=== PATIENT | male | born 1965 | race American Indian/Alaskan Native ===

== ENCOUNTER 2020-01-26 19:34 | Observation (INO) | payer OTHER ==
[2020-01-26] MEDS ORDERED: ASPIRIN 325 MG TAB PO ONE (19:41)
[2020-01-26 19:59] LABS: Hematocrit 37.7 % (35.5-45.6); Mean Corpuscular HGB Conc 34 % (32-34); Mean Corpuscular Volume 78 fl (84-94); Platelet Count 209 K/mm3 (140-440); Red Blood Count 4.82 M/mm3 (3.65-5.03); Red Cell Distribution Width 15.1 % (13.2-15.2)
[2020-01-26 20:24] LABS: BUN/Creatinine Ratio 18; Blood Urea Nitrogen 18 mg/dL (9-20); Calcium 9.2 mg/dL (8.4-10.2); Hemolysis Index 3
[2020-01-26 20:44] LABS: RBC Morphology Normal; Total Cells Counted 100
--- NOTE | 2020-01-26 20:47 | XRay Report ---
CHEST 2 VIEWS INDICATION / CLINICAL INFORMATION: Chest Pain. COMPARISON: None available. FINDINGS: SUPPORT DEVICES: None. HEART / MEDIASTINUM: No significant abnormality. LUNGS / PLEURA: There is mild interstitial pulmonary edema present. No pleural effusions or findings to suggest the presence of pneumonia. No pneumothorax. ADDITIONAL FINDINGS: No significant additional findings. IMPRESSION: 1. Interstitial pulmonary edema. Signer Name: Donita Baltazar MD Signed: 01/26/2020 8:43 PM Workstation Name: [id number]
[2020-01-26] MEDS ORDERED: MORPHINE 2 MG/1 ML INJ IV ONE (21:04)
--- NOTE | 2020-01-26 21:04 | Emergency Department Report ---
ED Chest Pain HPI - General Chief Complaint: Chest Pain Stated Complaint: CHEST PAIN PUI?: No Time Seen by Provider: 01/26/20 20:58 Source: patient Mode of arrival: Ambulatory Limitations: No Limitations - History of Present Illness Initial Comments: Patient is a 54-year-old male that presents emergency with complaints of chest pain or shortness of breath. Patient also complains of nausea. Patient states that his chest pain started yesterday. Patient states his chest pain is worsening. Patient states it is a 10 out of 10. Patient states the chest pain is in his left chest. Patient states that the pain is nonradiating. Patient states he is also having dyspnea on exertion. Patient states his pain is better with rest and worse with exertion. Patient states that shortness of breath is better with rest and worse with exertion. Patient states his nausea is better with rest and worse with exertion. Patient also complains of diaphoresis. Patient denies recent travel. Patient denies recent international travel. Patient denies exposure to the novel coronavirus. Patient denies sick contacts. Patient denies fever and chills. Patient denies cough. Patient denies diarrhea. Patient denies coming in contact with anybody with symptoms of the novel coronavirus. MD Complaint: chest pain -: Sudden Onset: during rest Pain Location: substernal, left chest Pain Radiation: none Severity: severe Severity scale (0 -10): 10 Quality: sharp, squeezing Consistency: constant Improves With: rest Worsens With: exertion, movement re: nausea, diaphoresis, dyspnea, sense of impending doom. denies: vomting Other Symptoms: denies: cough, fever, syncope, rash, acid taste in mouth, leg swelling, palpitations, burping Treatments Prior to Arrival: none Aspirin use within the Past 7 Days: (0) No - Related Data On Oral Contraceptives: No Allergies Allergy/AdvReac Type Severity Reaction Status Date / Time No Known Allergies Allergy Unverified 01/26/20 19:37 Heart Score - HEART Score History: Moderately suspicious EKG: Non-specific Age: 45-65 Risk factors: 1-2 risk factors Troponin: < normal limit HEART Score: 4 ED Review of Systems ROS: Stated complaint: CHEST PAIN Other details as noted in HPI Constitutional: denies: chills, fever Eyes: denies: eye pain, eye discharge, vision change ENT: denies: ear pain, throat pain Respiratory: shortness of breath, SOB with exertion, SOB at rest. denies: cough, wheezing Cardiovascular: chest pain, dyspnea on exertion. denies: palpitations Endocrine: no symptoms reported Gastrointestinal: denies: abdominal pain, nausea, diarrhea Genitourinary: denies: urgency, dysuria Musculoskeletal: denies: back pain, joint swelling, arthralgia Skin: denies: rash, lesions Neurological: denies: headache, weakness, paresthesias Psychiatric: denies: anxiety, depression Hematological/Lymphatic: denies: easy bleeding, easy bruising ED Past Medical Hx - Past Medical History Previous Medical History?: Yes Additional medical history: Hyperlipidemia, prediabetes, obesity - Surgical History Past Surgical History?: No - Family History Family history: no significant - Social History Smoking Status: Never Smoker Substance Use Type: None ED Physical Exam - General Limitations: No Limitations General appearance: alert, in no apparent distress - Head Head exam: Present: atraumatic, normocephalic - Eye Eye exam: Present: normal appearance, PERRL - ENT ENT exam: Present: mucous membranes moist - Neck Neck exam: Present: normal inspection - Respiratory Respiratory exam: Present: normal lung sounds bilaterally. Absent: respiratory distress, wheezes, rales, chest wall tenderness, accessory muscle use, decreased breath sounds - Cardiovascular Cardiovascular Exam: Present: regular rate, normal rhythm. Absent: systolic murmur, diastolic murmur, rubs, gallop - GI/Abdominal GI/Abdominal exam: Present: soft, normal bowel sounds - Rectal Rectal exam: Present: deferred - Extremities Exam Extremities exam: Present: normal inspection - Back Exam Back exam: Present: normal inspection - Neurological Exam Neurological exam: Present: alert, oriented X3 - Psychiatric Psychiatric exam: Present: normal affect, normal mood - Skin Skin exam: Present: warm, dry, intact, normal color. Absent: rash ED Course Vital Signs 01/26/20 01/26/20 01/26/20 19:37 20:50 20:54 Temperature 98.2 F 98.1 F Pulse Rate 84 80 Respiratory 18 16 18 Rate Blood Pressure 147/84 Blood Pressure 134/73 [Right] O2 Sat by Pulse 98 98 98 Oximetry 01/26/20 23:52 Temperature Pulse Rate 68 Respiratory 20 Rate Blood Pressure Blood Pressure 136/64 [Right] O2 Sat by Pulse 96 Oximetry - Reevaluation(s) Reevaluation #1: Patient states his pain is better after the aspirin and morphine. 01/26/20 21:25 Reevaluation #2: I discussed all results with patient. I discussed plan of care with patient. Patient agrees with plan of care and admission. Patient to be admitted to the hospitalist service. 01/26/20 21:41 - Consultations Consultation #1: Hospitalist consulted for admission. Hospitalist to admit patient. 01/26/20 21:41 MARIXA score - Marixa Score Age > 65: (0) No Aspirin use within the Past 7 Days: (0) No 3 or more CAD Risk Factors: (0) No 2 or more Angina events in past 24 hrs: (1) Yes Known CAD with more than 50% Stenosis: (0) No Elevated Cardiac Markers: (0) No ST Deviation Greater than 0.5mm: (0) No MARIXA Score: 1 ED Medical Decision Making - Lab Data Result diagrams: 01/26/20 19:46 01/26/20 19:46 - EKG Data -: EKG Interpreted by Vt EKG shows normal: sinus rhythm, axis, intervals, QRS complexes, ST-T waves - EKG Data Interpretation: [facility] - Radiology Data Radiology results: report reviewed CHEST 2 VIEWS INDICATION / CLINICAL INFORMATION: Chest Pain. COMPARISON: None available. FINDINGS: SUPPORT DEVICES: None. HEART / MEDIASTINUM: No significant abnormality. LUNGS / PLEURA: There is mild interstitial pulmonary edema present. No pleural effusions or findings to suggest the presence of pneumonia. No pneumothorax. ADDITIONAL FINDINGS: No significant additional findings. IMPRESSION: 1. Interstitial pulmonary edema. - Medical Decision Making Patient is a 54-year-old male that presents emergency room complaints of chest pain and shortness of breath. Patient also complains of nausea. Patient's past medical history consistent with prediabetes, elevated cholesterol and obesity. Patient had labs done which were essentially unremarkable. Patient's troponin was negative. Patient's chest x-ray showed pulmonary edema. Patient admitted to the hospitalist service for further evaluation and treatment. Patient given aspirin and morphine after initial evaluation. Patient states his pain improved. - Differential Diagnosis Chest pain, shortness of breath, EM, CHF, ACS Critical Care Time: Yes Critical care time in (mins) excluding proc time.: 35 Critical care attestation.: If time is entered above; I have spent that time in minutes in the direct care of this critically ill patient, excluding procedure time. Critical Care Time: 35 minutes ED Disposition Clinical Impression: SOB (shortness of breath), EM (dyspnea on exertion) Chest pain Qualifiers: Chest pain type: unspecified Qualified Code(s): R07.9 - Chest pain, unspecified Pulmonary edema Qualifiers: Chronicity: acute Qualified Code(s): J81.0 - Acute pulmonary edema Disposition: 09 OP ADMIT IP TO THIS HOSP Is pt being admited?: Yes Does the pt Need Aspirin: No Condition: Critical Time of Disposition: 21:41
[2020-01-26] MEDS ORDERED: HEPARIN 5,000 UNIT/1 ML VIAL SUB-Q SCH (22:45)
[2020-01-26] MEDS ORDERED: MORPHINE 2 MG/1 ML INJ IV PRN (22:47)
[2020-01-26] MEDS ORDERED: NITROGLYCERIN 0.4 MG TAB SUBL SL PRN (22:48)
[2020-01-26] MEDS ORDERED: ONDANSETRON 4 MG/2 ML INJ IV PRN (22:48)
[2020-01-26] MEDS ORDERED: ACETAMINOPHEN 325 MG TAB PO PRN (22:49)
[2020-01-26] MEDS ORDERED: HEPARIN 5,000 UNIT/1 ML VIAL ONE (23:46)
[2020-01-27] MEDS ORDERED: NITROGLYCERIN 2% OINT 1 GM TP SCH (06:00)
--- NOTE | 2020-01-27 06:46 | History and Physical Report ---
History of Present Illness Date of examination: 01/26/20 Date of admission: 01/26/20 22:35 Chief complaint: Chief complaint is chest pain, other complaint include shortness of breath and diaphoresis History of present illness: History of presenting illness, patient is a 54-year-old male who started having squeezing and pressure-like chest pain a day prior to presentation, pain is located in the precordial area, does not radiate and is worse with exertion and better with rest. There is no history of fever or chills, no history of dizziness or altered mental status, but patient admitted to having associated symptoms of diaphoresis and nausea but no vomiting Past History Past Medical History: hyperlipidemia, other (OBESITY, PREDIABETES) Past Surgical History: No surgical history Social history: no significant social history Family history: no significant family history Medications and Allergies Allergies Allergy/AdvReac Type Severity Reaction Status Date / Time No Known Allergies Allergy Unverified 01/26/20 19:37 Active Meds: Active Medications Acetaminophen (Tylenol) 650 mg PO Q4H PRN PRN Reason: Headache Aspirin (Aspirin) 325 mg PO QDAY [facility] Heparin Sodium (Porcine) (Heparin) 5,000 unit SUB-Q Q12HR [facility] Last Admin: 01/26/20 23:49 Dose: 5,000 unit Documented by: Morphine Sulfate (Morphine) 2 mg IV Q3H PRN PRN Reason: Pain, Moderate (4-6) Nitroglycerin (Nitro-Bid 2%) 0.5 inch TP QIDNTG [facility]; Protocol Last Admin: 01/27/20 05:36 Dose: 0.5 inch Documented by: Nitroglycerin (Nitrostat) 0.4 mg SL .Q5MIN PRN PRN Reason: Chest Pain Ondansetron HCl (Zofran) 4 mg IV Q8H PRN PRN Reason: Nausea And Vomiting Review of Systems Constitutional: sweats, no weight gain, no fever, no night sweats, no anorexia, no fatigue, no weakness, no malaise Eyes: bilateral: other (NO BILATERAL EYE SYMPTOM) Ears, nose, mouth and throat: no ear pain, no ear discharge, no decreased hearing, no nose pain, no nasal congestion, no nasal discharge, no dental pain, no mouth pain, no dysphagia, no hoarseness, no sore throat, no headache Cardiovascular: chest pain, shortness of breath, no orthopnea, no palpitations, no rapid/irregular heart beat, no edema, no syncope, no lightheadedness Respiratory: shortness of breath, no cough, no cough with sputum, no excessive sputum, no pain on inspiration Gastrointestinal: nausea, no abdominal pain, no vomiting, no diarrhea, no constipation, no change in bowel habits, no hematemesis, no melena, no hematochezia, no loss of appetite Genitourinary Male: no dysuria, no hematuria, no flank pain, no discharge, no urinary frequency, no urinary hesitancy, no nocturia Rectal: no pain Musculoskeletal: no neck stiffness, no neck pain, no shooting arm pain, no arm numbness/tingling, no low back pain, no shooting leg pain, no leg numbness/tingling, no muscle weakness, no muscle cramps, no myalgias Integumentary: no rash, no pruritis, no redness, no sores, no wounds, no jaundice, no boils, no lesions, no darkening of skin, no depigmentation, no acne, no dryness Neurological: no head injury, no transient paralysis, no weakness, no parathesias, no numbness, no tingling, no seizures, no syncope, no tremors, no ataxia, no vertigo, no headaches, no migraines, no convulsions, no aphasia, no change in speech, no change in mentation, no confusion Psychiatric: no anxiety, no disorientation, no confusion Endocrine: no cold intolerance, no heat intolerance, no polydipsia, no polyuria, no nocturia, no palpatations Hematologic/Lymphatic: no easy bruising, no lymphadenopathy Allergic/Immunologic: no persistent infections, no anaphylaxis Exam - Constitutional Vitals: Temp Pulse Resp BP Pulse Ox 98.0 F 88 18 134/87 95 01/27/20 03:17 01/27/20 05:36 01/27/20 03:17 01/27/20 05:36 01/27/20 03:17 General appearance: Present: no acute distress - EENT Eyes: Present: PERRL, EOM intact ENT: hearing intact, clear oral mucosa, dentition normal - Neck Neck: Present: supple, normal ROM. Absent: carotid bruits - Respiratory Respiratory effort: normal - Cardiovascular Rhythm: regular Heart Sounds: Present: S1 & S2. Absent: gallop, systolic murmur, diastolic murmur, click - Extremities Extremities: no ischemia, No edema Peripheral Pulses: within normal limits - Abdominal General gastrointestinal: Present: soft, non-tender, non-distended. Absent: tender, distended, hepatomegaly, splenomegaly Male genitourinary: Present: deferred - Rectal Rectal Exam: deferred - Integumentary Integumentary: Present: clear, warm, dry - Musculoskeletal Musculoskeletal: strength equal bilaterally - Psychiatric Psychiatric: appropriate mood/affect - Neurologic Neurologic: CNII-XII intact HEART Score - HEART Score EKG: Non-specific Age: 45-65 Risk factors: 1-2 risk factors Troponin: Troponin T < 0.010 ng/mL (0.00-0.029) 01/27/20 00:47 Troponin: < normal limit - Critical Actions Critical Actions: 0-3 pts:0.9-1.7%risk of adverse cardiac event.Candidate for discharge Results - Labs CBC & Chem 7: 01/26/20 19:46 01/26/20 19:46 Labs: Laboratory Last Values WBC 7.6 K/mm3 (4.5-11.0) 01/26/20 19:46 RBC 4.82 M/mm3 (3.65-5.03) 01/26/20 19:46 Hgb 13.0 gm/dl (11.8-15.2) 01/26/20 19:46 Hct 37.7 % (35.5-45.6) 01/26/20 19:46 MCV 78 fl (84-94) L 01/26/20 19:46 MCH 27 pg (28-32) L 01/26/20 19:46 MCHC 34 % (32-34) 01/26/20 19:46 RDW 15.1 % (13.2-15.2) 01/26/20 19:46 Plt Count 209 K/mm3 (140-440) 01/26/20 19:46 Add Manual Diff Complete 01/26/20 19:46 Total Counted 100 01/26/20 19:46 Seg Neuts % (Manual) 53.0 % (40.0-70.0) 01/26/20 19:46 Band Neutrophils % 0 % 01/26/20 19:46 Lymphocytes % (Manual) 34.0 % (13.4-35.0) 01/26/20 19:46 Reactive Lymphs % (Man) 0 % 01/26/20 19:46 Monocytes % (Manual) 8.0 % (0.0-7.3) H 01/26/20 19:46 Eosinophils % (Manual) 4.0 % (0.0-4.3) 01/26/20 19:46 Basophils % (Manual) 1.0 % (0.0-1.8) 01/26/20 19:46 Metamyelocytes % 0 % 01/26/20 19:46 Myelocytes % 0 % 01/26/20 19:46 Promyelocytes % 0 % 01/26/20 19:46 Blast Cells % 0 % 01/26/20 19:46 Nucleated RBC % Not Reportable 01/26/20 19:46 Seg Neutrophils # Man 4.0 K/mm3 (1.8-7.7) 01/26/20 19:46 Band Neutrophils # 0.0 K/mm3 01/26/20 19:46 Lymphocytes # (Manual) 2.6 K/mm3 (1.2-5.4) 01/26/20 19:46 Abs React Lymphs (Man) 0.0 K/mm3 01/26/20 19:46 Monocytes # (Manual) 0.6 K/mm3 (0.0-0.8) 01/26/20 19:46 Eosinophils # (Manual) 0.3 K/mm3 (0.0-0.4) 01/26/20 19:46 Basophils # (Manual) 0.1 K/mm3 (0.0-0.1) 01/26/20 19:46 Metamyelocytes # 0.0 K/mm3 01/26/20 19:46 Myelocytes # 0.0 K/mm3 01/26/20 19:46 Promyelocytes # 0.0 K/mm3 01/26/20 19:46 Blast Cells # 0.0 K/mm3 01/26/20 19:46 WBC Morphology Not Reportable 01/26/20 19:46 Hypersegmented Neuts Not Reportable 01/26/20 19:46 Hyposegmented Neuts Not Reportable 01/26/20 19:46 Hypogranular Neuts Not Reportable 01/26/20 19:46 Smudge Cells Not Reportable 01/26/20 19:46 Toxic Granulation Not Reportable 01/26/20 19:46 Toxic Vacuolation Not Reportable 01/26/20 19:46 Dohle Bodies Not Reportable 01/26/20 19:46 Pelger-Huet Anomaly Not Reportable 01/26/20 19:46 Kory Rods Not Reportable 01/26/20 19:46 Platelet Estimate Not Reportable 01/26/20 19:46 Clumped Platelets Not Reportable 01/26/20 19:46 Plt Clumps, EDTA Not Reportable 01/26/20 19:46 Large Platelets Not Reportable 01/26/20 19:46 Giant Platelets Not Reportable 01/26/20 19:46 Platelet Satelliting Not Reportable 01/26/20 19:46 Plt Morphology Comment Not Reportable 01/26/20 19:46 RBC Morphology Normal 01/26/20 19:46 Dimorphic RBCs Not Reportable 01/26/20 19:46 Polychromasia Not Reportable 01/26/20 19:46 Hypochromasia Not Reportable 01/26/20 19:46 Poikilocytosis Not Reportable 01/26/20 19:46 Anisocytosis Not Reportable 01/26/20 19:46 Microcytosis Not Reportable 01/26/20 19:46 Macrocytosis Not Reportable 01/26/20 19:46 Spherocytes Not Reportable 01/26/20 19:46 Pappenheimer Bodies Not Reportable 01/26/20 19:46 Sickle Cells Not Reportable 01/26/20 19:46 Target Cells Not Reportable 01/26/20 19:46 Tear Drop Cells Not Reportable 01/26/20 19:46 Ovalocytes Not Reportable 01/26/20 19:46 Helmet Cells Not Reportable 01/26/20 19:46 [place] Bodies Not Reportable 01/26/20 19:46 [place] Rings Not Reportable 01/26/20 19:46 [place] Cells Not Reportable 01/26/20 19:46 Bite Cells Not Reportable 01/26/20 19:46 Crenated Cell Not Reportable 01/26/20 19:46 Elliptocytes Not Reportable 01/26/20 19:46 Acanthocytes (Spur) Not Reportable 01/26/20 19:46 Rouleaux Not Reportable 01/26/20 19:46 Hemoglobin C Crystals Not Reportable 01/26/20 19:46 Schistocytes Not Reportable 01/26/20 19:46 Malaria parasites Not Reportable 01/26/20 19:46 Shaji Bodies Not Reportable 01/26/20 19:46 Hem Pathologist Commnt No 01/26/20 19:46 Sodium 142 mmol/L (137-145) 01/26/20 19:46 Potassium 4.0 mmol/L (3.6-5.0) 01/26/20 19:46 Chloride 103.5 mmol/L (98-107) 01/26/20 19:46 Carbon Dioxide 26 mmol/L (22-30) 01/26/20 19:46 Anion Gap 17 mmol/L 01/26/20 19:46 BUN 18 mg/dL (9-20) 01/26/20 19:46 Creatinine 1.0 mg/dL (0.8-1.3) 01/26/20 19:46 Estimated GFR > 60 ml/min 01/26/20 19:46 BUN/Creatinine Ratio 18 % 01/26/20 19:46 Glucose 112 mg/dL (75-100) H 01/26/20 19:46 Calcium 9.2 mg/dL (8.4-10.2) 01/26/20 19:46 Troponin T < 0.010 ng/mL (0.00-0.029) 01/27/20 00:47 NT-Pro-B Natriuret Pep 55.02 pg/mL (0-900) 01/26/20 21:09 Banks/IV: Voiding Method Toilet IV Catheter Type [Left Peripheral IV Antecubital] Assessment and Plan - Patient Problems (1) Chest pain Current Visit: Yes Status: Acute Qualifiers: Chest pain type: unspecified Qualified Code(s): R07.9 - Chest pain, unspecified Plan to address problem: 1. TELEMETRY OBSERVATION 2. SERIAL CARDIAC ENZYMES 3. NPO 4. LEXISCAN STRESS TEST 5. NITROGLYCERINE( SUBLINGUAL AND PASTE) 6. I.V MORPHINE FOR PAIN 7. ASPIRIN PO 8 I.V ZOFRAN FOR NAUSEA AND VOMITING 9. TYLENOL FOR HEADACHE
[2020-01-27] MEDS ORDERED: REGADENOSON 0.4 MG/5 ML INJ IV ONE ×2 (08:45→08:56)
[2020-01-27] MEDS ORDERED: ASPIRIN 325 MG TAB PO SCH (10:00)
[2020-01-27 10:24] VITALS: BP 129/70
[2020-01-27] MEDS ORDERED: FUROSEMIDE 40 MG/4 ML INJ IV SCH (11:00)
--- NOTE | 2020-01-27 11:01 | Discharge Summary ---
Providers - Providers Date of Admission: 01/26/20 22:35 Attending physician: VISHNU MONK MD Primary care physician: WOVEN LABEL DESIGNER Hospitalization Reason for admission: chest pain Condition: Stable Hospital course: pleuritic chest pain only with movement Orthopena morbid obseity outpatient cardiology follow up Disposition: DC-01 TO HOME OR SELFCARE Time spent for discharge: 35 mins Exam - Constitutional Vitals: Temp Pulse Resp BP Pulse Ox 98.0 F 88 18 129/70 95 01/27/20 03:17 01/27/20 05:36 01/27/20 03:17 01/27/20 08:52 01/27/20 03:17 Plan Activity: advance as tolerated, fall precautions Diet: low fat, low salt Special Instructions: record daily weights, record daily BP diary Follow up with: PRIMARY CAREMD [Primary Care Provider] - 3-5 Days GAYLE RAPHAEL MD [Staff Physician] - 7 Days Prescriptions: Simvastatin 20 mg PO QHS #30 tablet Furosemide [Lasix] 20 mg PO QDAY #30 tablet Ibuprofen [Motrin 600 MG tab] 600 mg PO Q8H PRN #20 tablet PRN Reason: Pain
--- NOTE | 2020-01-27 13:55 | Treadmill Report ---
CARDIAC NUCLEAR PERFUSION STUDY REASON FOR STUDY: Chest pain. READING PHYSICIAN: Dr. Soto. IMAGING PROTOCOL: The patient received 10 mCi of Technetium 99m Tetrofosmin for resting image and 28 mCi of Technetium 99m Tetrofosmin for stress imaging. The imaging for the whole procedure was completed 30-90 minutes following the initial injection of Technetium 99m Tetrofosmin. The SPECT imaging in the 180 degree arc was performed in the right anterior oblique projection. Computerized reconstruction of the images was performed for analysis. IMAGING RESULTS: Normal cavity size from stress to rest. Normal distribution of radionuclide in the anterior, inferior, septal, and apical regions. Gated SPECT, EF greater than 65% with no wall motion abnormalities. The patient infused Lexiscan with no EKG changes. SUMMARY: 1. Negative Lexiscan EKG. 2. Normal rest and stress myocardial perfusion scan. No significant ischemia. No wall motion abnormality. Gated SPECT, EF greater than 70%. JOB# [id number] ESTEFANY/SHEILA
== END 2020-01-27 12:15 | disposition home or self-care (01) ==
LOC: ED 19:34 → 4A 22:35
PROVIDERS: ADMIT Internal Medicine; ATTEND Internal Medicine
DX: R07.81 Pleurodynia (principal); R06.01 Orthopnea; J81.0 Acute pulmonary edema; E78.5 Hyperlipidemia, unspecified; E66.01 Morbid (severe) obesity due to excess calories; Z79.899 Other long term (current) drug therapy; Z68.42 Body mass index [BMI] 45.0-49.9, adult
CPT/HCPCS: 36415; 71046; 78452; 80048; 83880; 84484; 85025; 93005; 93017; 93306; 96372; 96374; 96375; 99291; A9502; G0378; J1644; J1940; J2270; J2785; 85007